=== PATIENT | male | born 1945 | race Caucasian/White ===

== ENCOUNTER 2023-12-19 18:41 | Emergency (ER) | payer OTHER ==
[~2023-12-19] VITALS: Ht 170.2 cm; Wt 81.6 kg
[2023-12-19 18:52] VITALS: BP 164/102; PULSE 130; RESP 20; TEMP 98.1; O2SAT 99
[2023-12-19] MEDS ORDERED: MORPHINE SULFATE 4 MG/ML SYR IVP ONE (19:40)
[2023-12-19] MEDS ORDERED: ONDANSETRON 4 MG/2 ML VIAL IVP ONE ×2 (19:45→22:40)
[2023-12-19 19:51] LABS: HEMATOCRIT 44.5 % (36-52); HEMOGLOBIN 14.9 g/dL (12.0-18.0); MEAN CORPUSCULAR HEMOGLOBIN 30 pg (27-31); MEAN CORPUSCULAR HGB CONC 33 g/dL (33-37); MEAN CORPUSCULAR VOLUME 89.5 fL (80-94); PLATELET COUNT (AUTO) 274 K/uL (140-450); RED BLOOD CELL COUNT(AUTO) 4.97 MIL/uL (4.20-6.10); RED CELL DISTRIBUTION WIDTH 13.9 % (11.6-13.7); WHITE BLOOD COUNT (AUTO) 24.8 K/uL (4.8-10.8)
[2023-12-19 20:04] LABS: ALANINE AMINOTRANSFERASE 28 U/L (12-78); ALBUMIN 3.8 g/dL (3.4-5.0); ALKALINE PHOSPHATASE 125 U/L (50-136); ANION GAP 21.9 (8-16); ASPARTATE AMINOTRANSFERASE 42 U/L (15-37); CALCIUM 9.5 mg/dL (8.5-10.1); CARBON DIOXIDE 20.6 mmol/L (21-32); CHLORIDE 101 mmol/L (98-107); GLUCOSE 146 mg/dL (74-106); LIPASE 45 U/L (16-77); POTASSIUM 3.5 mmol/L (3.5-5.1); SODIUM SERUM 140 mmol/L (136-145); TOTAL BILIRUBIN 0.6 mg/dL (0.0-1.0); TOTAL PROTEIN, SERUM 10.1 g/dL (6.4-8.2); UREA NITROGEN, BLOOD 18 mg/dL (7-18)
[2023-12-19 20:16] LABS: INR 1.01 (0.8-1.2); PARTIAL THROMBOPLASTIN TIME 25.2 secs (22-35.6); PROTHROMBIN TIME 10.6 secs (10.8-13.4)
[2023-12-19 20:25] LABS: LYMPHOCYTES % (MANUAL) 18 % (20-46); MONOCYTES % (MANUAL) 4 % (5-12); PLATELET ESTIMATE ADEQUATE
[2023-12-19] MEDS ORDERED: NACL 0.9% 1,000 ML IV ONE (20:30)
[2023-12-19] MEDS ORDERED: PIPERACILLIN/TAZOBACTAM 4.5 GM in DEXTROSE 5% 100 ML IV ONE (20:30)
[2023-12-19] MEDS ORDERED: VANCOMYCIN 1,000 MG in DEXTROSE 5% 250 ML IV ONE (20:30)
[2023-12-19] MEDS ORDERED: LABETALOL 20 MG/4 ML VIAL IVP ONE (20:35)
[2023-12-19] MEDS ORDERED: PIPERACILLIN/TAZOBACTAM 4.5 GM VIAL IV ONE (21:02)
[2023-12-19] MEDS ORDERED: VANCOMYCIN 1,000 MG VIAL ONE (21:03)
[2023-12-19] MEDS ORDERED: [UNRECOGNIZED DRUG - CODE] PO (22:23)
[2023-12-19] MEDS ORDERED: SIMV-373 PO (22:25)
[2023-12-19] MEDS ORDERED: LORA-476 PO (22:26)
[2023-12-19] MEDS ORDERED: ACET-8905 PO (22:30)
[2023-12-19 22:53] VITALS: BP 106/76; PULSE 87; RESP 18; TEMP 96.6; O2SAT 95
== END 2023-12-19 23:00 | disposition short-term general hospital (02) ==
LOC: MED 18:41
DX: I71.43 Infrarenal abdominal aortic aneurysm, without rupture (principal); N17.9 Acute kidney failure, unspecified; N28.0 Ischemia and infarction of kidney; I99.8 Other disorder of circulatory system; R00.0 Tachycardia, unspecified; I10 Essential (primary) hypertension; E78.5 Hyperlipidemia, unspecified; Z79.899 Other long term (current) drug therapy
CPT/HCPCS: 36415; 70450; 71045; 73706; 74174; 80053; 83605; 83690; 83880; 84484; 85025; 85379; 85610; 85730; 86886; 86900; 86901; 93005; 96365; 96368; 96375; 99291; J2270; J2405; J2543; J3370; J3490; J7030; Q0092; Q9967